=== PATIENT | male | born 1960 | race African-American/Black ===

== ENCOUNTER 2022-03-17 09:11 | Outpatient (REF) | payer MEDICAID, OTHER, SELFPAY ==
[2022-03-17 10:28] LABS: Appearance Urine CLEAR; Color Urine YELLOW; Glucose Urine UA NEG (NEG); Leukocyte Esterase Urine NEG (NEG); Nitrite Urine NEG (NEG); PH 7.5 (5.0-8.0); Urine Blood NEG (NEG); Urine Ketones NEG (NEG); Urine Protein NEG (NEG-TRACE)
== END 2022-03-17 09:12 | disposition home or self-care (01) ==
LOC: HO.LAB 09:11
PROVIDERS: Visit Provider Student in an Organized Health Care Education/Training Program
DX: R97.20 Elevated prostate specific antigen [PSA] (principal)
CPT/HCPCS: 81003

== ENCOUNTER 2023-02-25 13:58 | Outpatient (REF) | payer MEDICAID, OTHER, SELFPAY ==
--- NOTE | ~2023-02-25 | XR_ITS ---
EXAMINATION: XR CHEST CLINICAL INFORMATION: Cough COMPARISON: None available. TECHNIQUE: 2 views of the chest were obtained. FINDINGS: Right basilar opacity may represent atelectasis or infiltrate. The left lung is grossly clear. The cardiac silhouette is within normal limits. Tortuous versus ectatic arch and descending aorta Prominent infrahilar region on the right may be reactive. XR/XR chest 2V IMPRESSION: Findings consistent with right lower lobe/right middle lobe infiltrate/atelectasis. Prominent infrahilar region on the right may be reactive. Follow-up films are recommended in 4-6 weeks after treatment to assess for resolution as an underlying lesion cannot be excluded
== END 2023-02-25 13:59 | disposition home or self-care (01) ==
LOC: HO.HHCX 13:58
PROVIDERS: Visit Provider Emergency Medicine
DX: R05.9 Cough, unspecified (principal); R68.89 Other general symptoms and signs
CPT/HCPCS: 71046

== ENCOUNTER 2025-09-19 08:18 | Outpatient (REF) | payer SELFPAY ==
--- OUTSIDE RECORDS SUMMARY | 2025-09-18 09:00 | XMS_ITS | Encounter Summary ---
Author Organization [employer] Address [address] [facility] 7[address] [place] [address] Care Team Providers Care Clerk Carrier Name Role Phone Arlet Ansari MD Primary Care Provider [phone] Reason for Visit * Reason Comments Follow-up Encounter Details Date Type Department Care Team (Latest Contact Info) Description 09/18/2025 9:00 AM EST Office Visit [facility] [address] [place] [address] Arlet Ansari MD [address] [place] [address] Essential hypertension (Primary Dx); Dietary counseling; Exercise counseling; Prostate cancer (CMS/HCC) (HCC); Cobalamin deficiency; Benign prostatic hyperplasia with urinary frequency; Encounter for hepatitis C screening test for low risk patient; Screening for colon cancer; Erectile dysfunction following simple prostatectomy Social History Tobacco Use Types Packs/Day Years Used Date Smoking Tobacco: Never Passive Smoke Exposure: Never Smokeless Tobacco: Never Alcohol Use Standard Drinks/Week Comments Never 0 (1 standard drink = 0.6 oz pur e alcohol) Depression Answer Date Recorded Patient Health Questionnaire-9 Score 3 09/18/2025 Patient Health Questionnaire-9 Score 3 09/18/2025 Last PHQ-9: Questionnaire Data Not on file 1 Housing Stability Answer Date Recorded What is your housing situation today? I have barb romeo 09/04/[address] you li ve. Do you have problems with any of the following? None of the above 09/04/2025 Food Insecurity Answer Date Recorded Within the past 12 months, y ou worried that your food would run out before you got money to buy more: Never True 09/04/2025 Within the past 12 months,th e food you bought just didn't last and you didn't have enough money to get more: Never True Transportation Answer Date Recorded In the past 12 months, has l ack of transportation kept you from medical appts, meetings, work or from getting things needed for daily living? No 09/04/2025 Utilities Answer Date Recorded In the past 12 months, has t he electric, gas, oil or water company threatened to shut off services in your home? No 09/04/2025 Depression Answer Date Recorded Patient Health Questionnaire-2 Score 0 09/18/2025 Internet Access Answer Date Recorded Internet Access Q1 Yes 09/04/2025 Internet Access Q2 Not on file 09/04/2025 Sex and Gender Information Value Date Recorded Sex Assigned at Male 07/20/2022 10:32 AM EDT Legal Sex Male 10:32 AM EDT Gender Identity Male 07/20/2022 10:32 AM EDT Sexual Orientation Don't know 10/01/2022 1: 32 PM EST documented as of this encounter Last Filed Vital Signs Vital Sign Reading Time Taken Comments Blood Pressure 138/80 09/18/2025 9:32 AM EST Pulse 79 09/18/2025 9:32 AM EST Temperature 36.6 C (97.9 F) 09/18/2025 9:32 AM EST Respiratory Rate 20 09/18/2025 9:32 AM EST Oxygen Saturation 98% 09/18/2025 9:32 AM EST Inhaled Oxygen Concentration - - Weight 77.7 kg (171 lb 6.4 oz) 09/18/2025 9:32 A M EST Height 175.3 cm (5' 9 ) 09/18/2025 9:32 AM EST Body Mass Index 25.31 09/18/2025 9:32 AM EST documented in this encounter Functional Status * Over the past 2 weeks, how often have you been bothered by any of the following problems? Question Answer Date of Assessment Author Patient Health Questionnaire -2 Score 0 09/18/2025 9:45 AM EST Nafisa Gerardo MA * Little interest or pleasure in doing things Answer Date of Assessment Author Not at all 09/18/2025 9:45 AM EST Nafisa Gerardo MA * Feeling down, depressed, or hopeless Answer Date of Assessment Author Not at all 09/18/2025 9:45 AM EST Nafisa Gerardo MA * Trouble falling or staying asleep, or sleeping too much Answer Date of Assessment Author Not at all 09/18/2025 9:45 AM Nafisa Echavarria MA * Feeling tired or having little energy Answer Date of Assessment Author Not at all 09/18/2025 9:45 AM Nafisa Echavarria MA * Poor appetite or overeating Answer Date of Assessment Author Not at all 09/18/2025 9:45 AM Nafisa Echavarria MA * Feeling bad about yourself - or that you are a failure or have let yourself or your family down Answer Date of Assessment Author Not at all 09/18/2025 9:45 AM Nafisa Echavarria MA * Trouble concentrating on things, such as reading the newspaper or watching television Answer Date of Assessment Author Not at all 09/18/2025 9:45 AM Nafisa Echavarria MA * Moving or speaking so slowly that other people could have noticed? Or the opposite - being so fidgety or restless that you have been moving around a lot more than usual. Answer Date of Assessment Author Nearly every day 09/18/2025 9:45 AM Nafisa Echavarria MA * Thoughts that you would be better off or hurting yourself in some way Answer Date of Assessment Author Not at all 09/18/2025 9:45 AM Nafisa Echavarria MA * Patient Health Questionnaire-9 Score Answer Date of Assessment Author 3 09/18/2025 9:45 AM Nafisa Echavarria MA * How difficult have these problems made it for you to do your work, take care of things at home, or get along with other people? Answer Date of Assessment Author Not difficult at all 09/18/2025 9:45 AM Naifsa Reed MA documented as of this encounter Progress Notes * Arlet Ansari MD - 09/18/2025 9:00 AM EST SUBJECTIVE: Linus Bernabe is a 65 y.o. male who presents for chronic disease management. Denies recent illness, ER visit, or hospitalization. Acute Concerns: He wants to see a urologist for erectile dysfunction, but tried to call [facility], where he wasseen for prostate cancer and they told him that they would no longer see him. Chronic Conditions and Plans: HTN has been checking his BP once a day, readings have been 130-148/80-90. Compliant with lisinopril 40mg and HCTZ 50mg and Amlodipine 2.5mg B12 deficiency not taking any longer, does not notice a difference BPH managing without meds Prostate cancer s/p robotic prostatectomy 06/2022 at [facility] minimal urinary leakage First PSA < 0.01 after surgery, followup in Oct 2022 Reporting ED where he cannot achieve erection, was offered injectable and is scared of the injection Allergic rhinitis: not active currently Health Maintenance Imms- due Flu, PCV20, COVID, RSV, zoster; declines Colon- ordered Cologuard 09/08/25 PSA- check today Patient Active Problem List Diagnosis Date Noted Subcutaneous nodule of back 08/22/2025 Erectile dysfunction following simple prostatectomy 12/17/2023 Benign prostatic hyperplasia 08/24/2022 Cobalamin deficiency 08/24/2022 Prostate cancer (CMS/HCC) (HCC) 07/09/2022 Benign prostatic hyperplasia with nocturia 12/23/2021 Prostate nodule 12/23/2021 IFG (impaired fasting glucose) 11/08/2018 Essential hypertension 10/04/2018 Allergic rhinitis 2018 Surgical History[1] Social History Social History Narrative Not on file Review of Systems Constitutional: Negative. Respiratory: Negative. Cardiovascular: Negative. Gastrointestinal: Negative. Genitourinary: Erectile dysfunction Musculoskeletal: Negative. Skin: Negative. Psychiatric/Behavioral: Negative. OBJECTIVE: Vitals: 09/18/25 0932 BP: 138/80 BP Location: Left arm Patient Position: Sitting BP Cuff Size: Large adult Pulse: 79 Resp: 20 Temp: 97.9 ??F (36.6 ??C) TempSrc: Oral SpO2: 98% Weight: 171 lb 6.4 oz (77.7 kg) Height: 5' 9 (1.753 m) Physical Exam Vitals reviewed. Constitutional: Appearance: Normal appearance. He is normal weight. HENT: Head: Normocephalic and atraumatic. Cardiovascular: Rate and Rhythm: Normal rate and regular rhythm. Pulses: Normal pulses. Heart sounds: Normal heart sounds. Pulmonary: Effort: Pulmonary effort is normal. Breath sounds: Normal breath sounds. Abdominal: Palpations: Abdomen is soft. Skin: General: Skin is warm and dry. Capillary Refill: Capillary refill takes less than 2 seconds. Neurological: General: No focal deficit present. Mental Status: He is alert and oriented to person, place, and time. Psychiatric: Mood and Affect: Mood normal. Behavior: Behavior normal. ASSESSMENT/PLAN Problem List Items Addressed This Visit Benign prostatic hyperplasia Cobalamin deficiency Essential hypertension - Primary Relevant Medications sildenafil (Viagra) 25 MG tablet Other Relevant Orders Lipid Panel, Standard Comprehensive Metabolic Panel Hemoglobin A1c Prostate cancer (CMS/HCC) (HCC) Relevant Medications sildenafil (Viagra) 25 MG tablet Other Relevant Orders PSA,Total Erectile dysfunction following simple prostatectomy Relevant Medications sildenafil (Viagra) 25 MG tablet Other Visit Diagnoses Dietary counseling Exercise counseling Encounter for hepatitis C screening test for low risk patient Relevant Orders Hepatitis C Antibody with Reflex to HCV, RNA, Quantitative, Real-Time PCR Screening for colon cancer Relevant Orders Cologuard?? colon cancer screening Follow Up: 6 months or sooner prn Allergies[2] Current Medications[3] Polish Translation: Provided by [facility] staff member REGGIE Skelton [1] History reviewed. No pertinent surgical history. [2] No Known Allergies [3] Current Outpatient Medications: amLODIPine (Norvasc) 2.5 MG tablet, Take 1 tablet (2.5 mg) by mouth Once per day., Disp: 90 tablet,Rfl: 3 acetaminophen (Tylenol) 325 MG tablet, Take 2 tablets (650 mg) by mouth every 4 (four) hours if needed for moderate pain or fever., Disp: 30 tablet, Rfl: 0 Aspirin Low Dose 81 MG chewable tablet, CHEW 1 TABLET BY MOUTH EVERY DAY IN THE MORNING, Disp: 90 tablet, Rfl: 3 cyclobenzaprine (Flexeril) 10 MG tablet, TAKE 1 TABLET BY MOUTH TWICE DAILY, Disp: 40 tablet, Rfl: 0 Docusate Sodium (DSS) 100 MG capsule, Take 100 mg by mouth., Disp: , Rfl: fluticasone (Flonase) 50 MCG/ACT nasal spray, INSTILL 1 SPRAY IN EACH NOSTRIL ONCE DAILY, Disp: 48 g, Rfl: 0 hydroCHLOROthiazide (HYDRODiuril) 50 MG tablet, TAKE 1 TABLET BY MOUTH ONCE DAILY IN THE MORNING, Disp: 90 tablet, Rfl: 3 lisinopril 40 MG tablet, TAKE 1 TABLET BY MOUTH EVERY MORNING, Disp: 90 tablet, Rfl: 3 sildenafil (Viagra) 25 MG tablet, Take 1 tablet (25 mg) by mouth if needed each day for erectile dysfunction., Disp: 15 tablet, Rfl: 3 documented in this encounter Plan of Treatment Scheduled Orders Name Type Priority Associated Diagnoses Orde r Schedule Lipid Panel, Standard Lab Routine Essential hypertension Expected: 09/18/2025 (Approximate), Expires: 09/18/2026 Comprehensive Metabolic Panel Lab Routine Essential hypertension Expected: 09/18/2025 (Approximate), Expires: 09/18/2026 Hemoglobin A1c Lab Routine Essential hypertension Expected: 09/18/2025 (Approximate), Expires: 09/18/2026 Hepatitis C Antibody with Reflex to HCV, RNA, Quantitative, Real-Time PCR Lab Routine Encounter for hepatitis C screening test for low risk patient Expected: 09/18/2025, Expires: 09/18/2026 Cologuard colon cancer screening Lab Routine Screening for colon cancer Ordered: 09/18/2025 PSA,Total Lab Routine Prostate cancer (CMS/HCC) (HCC) Expected: 09/18/2025, Expires: 09/18/2026 documented as of this encounter Visit Diagnoses Diagnosis Essential hypertension- Primary Unspecified essential hypertension Dietary counseling Dietary surveillance and counseling Exercise counseling Prostate cancer (CMS/HCC) (HCC) Malignant neoplasm of prostate Cobalamin deficiency Other B-complex deficiencies Benign prostatic hyperplasia with urinary frequency Encounter for hepatitis C screening test for low risk patient Screening for colon cancer Special screening for malignant neoplasms, colon Erectile dysfunction following simple prostatectomy documented in this encounter Additional Health Concerns Assessment Noted Time PHQ-9 Depression Total Score: 3 09/18/20 25 9:45 AM EST documented as of this encounter Care Teams Clerk Carrier Relationship Specialty Start Date End Date Arlet Ansari MD [address] [place] [id number] PCP - General Family Medicine 08/17/22 documented as of this encounter
--- OUTSIDE RECORDS SUMMARY | 2025-09-19 08:24 | XMS_ITS | Encounter Summary ---
Author Organization [email or web address] Address [address] [facility] 7t [place] [address] Care Team Providers Care Wellness Specialist Name Role Phone Arlet Ansari MD Primary Care Provider [phone] Encounter Details Date Type Department Care Team (Late st Contact Info) Description 11/29/2023 Orders Only [facility] [address] [place], [place] [phone] Arlet Ansari MD [address] [place], [place] [phone] Social History Tobacco Use Types Packs/Day Years Used Date Smoking Tobacco: Never Passive Smoke Exposure: Never Smokeless Tobacco: Never Alcohol Use Standard Drinks/Week Comments Never 0 (1 standard drink = 0.6 oz pur e alcohol) Housing Stability Answer Date Recorded What is your housing situation today? I have barb romeo 07/31/[address] you li ve. Do you have problems with any of the following? None of the above 07/31/2023 Food Insecurity Answer Date Recorded Within the past 12 months, y ou worried that your food would run out before you got money to buy more: Never True 07/31/2023 Within the past 12 months,th e food you bought just didn't last and you didn't have enough money to get more: Never True 07/2023 Transportation Answer Date Recorded In the past 12 months, has l ack of transportation kept you from medical appts, meetings, work or from getting things needed for daily living? Yes, it has kept me from medical appointments or getting medications. 06/27/2023 Utilities Answer Date Recorded In the past 12 months, has t he electric, gas, oil or water company threatened to shut off services in your home? No 07/31/2023 Depression Answer Date Recorded Patient Health Questionnaire-2 Score 0 09/30/2022 Sex and Gender Information Value Date Recorded Sex Assigned at Male 07/20/2022 10:32 AM EDT Legal Sex Male 10:32 AM EDT Gender Identity Male 07/20/2022 10:32 AM EDT Sexual Orientation Don't know 10/01/2022 1: 32 PM EST documented as of this encounter Plan of Treatment Not on file documented as of this encounter Visit Diagnoses Not on filedocumented in this encounter Care Teams Wellness Specialist Relationship Specialty Start Date End Date Arlet Ansari MD [address] [place] [id number] PCP - General Family Medicine 08/17/22 documented as of this encounter
--- OUTSIDE RECORDS SUMMARY | 2025-09-19 08:24 | XMS_ITS | Encounter Summary ---
Author Organization [employer] Address [address] [facility] 7t [place] [address] Care Team Providers Care Validation Intern Name Role Phone Arlet Ansari MD Primary Care Provider [phone] Encounter Details Date Type Department Care Team (Late st Contact Info) Description 03/19/2023 Orders Only [facility] [address] [place], [place] [phone] Abe Brown MD [address] [place], [place] [phone] Pneumonia of right middle lobe due to infectious organism (Primary Dx) Social History Tobacco Use Types Packs/Day Years Used Date Smoking Tobacco: Never Smokeless Tobacco: Never Alcohol Use Standard Drinks/Week Comments Never 0 (1 standard drink = 0.6 oz pur e alcohol) Depression Answer Date Recorded Patient Health Questionnaire-2 Score 0 09/30/2022 Sex and Gender Information Value Date Recorded Sex Assigned at Male 07/20/2022 10:32 AM EDT Legal Sex Male 10:32 AM EDT Gender Identity Male 07/20/2022 10:32 AM EDT Sexual Orientation Don't know 10/01/2022 1: 32 PM EST COVID-19 Exposure Response Date Recorded In the last 10 days, have yo u been in contact with someone who was confirmed or suspected to have Coronavirus/COVID-19? No / Unsure 02/25/2023 12:39 PM EDT documented as of this encounter Plan of Treatment Scheduled Orders Name Type Priority Associated Diagnoses Orde r Schedule XR Chest 2 Views Imaging Routine Pneumonia of right middle lobe due to infectious organism Expected: 03/19/2023, Expires: 03/19/2024 documented as of this encounter Visit Diagnoses Diagnosis Pneumonia of right middle lobe due to infectious organism- Primary documented in this encounter Care Teams Validation Intern Relationship Specialty Start Date End Date Arlet Ansari MD [address] [place] [address] PCP - General Family Medicine 08/17/22 documented as of this encounter
--- OUTSIDE RECORDS SUMMARY | 2025-09-19 08:24 | XMS_ITS | Clinical Summary ---
Author Organization [facility] Address [address] [place] [address] Care Team Providers Care Auger Operator Name Role Phone Kelin Solis Primary Care Provider [phone] Allergies No known active allergies Medications lisinopril (PRINIVIL,ZESTR IL) 30 mg tablet Take 40 mg by mouth daily. 3 01/12/2018 Active hydroCHLOROthia zide (HYDRODIURIL) 25 mg tablet Take 25 mg by mouth daily. 3 01/12/2018 Active cholecalciferol (VITAMIN D3) 2,000 unit capsule Take 1 capsule by mouth once a day. 11/19/2021 Active aspirin chewable tablet 81 mg Chew and swallow 1 tablet (81 mg total) by mouth once a day. 07/17/2022 Active Active Problems Problem Noted Date Diagnosed Date Prostate cancer 07/09/2022 Prostate nodule 12/23/2021 Benign prostatic hyperplasia with nocturia 12/23 Family History Medical History Relation Name Comments No Known Problems Father No Known Problems Mother Relation Name Status Comments Father Mother Social History Tobacco Use Types Packs/Day Years Used Date Smoking Tobacco: Never Smokeless Tobacco: Never Tobacco Cessation:Counseling Given: Not Answered Alcohol Use Standard Drinks/Week Comments Not Currently 0 (1 standard drink = 0.6 oz pur e alcohol) rarely a glass of wine Sex and Gender Information Value Date Recorded Sex Assigned at Male 01/10/2024 3:01 PM EDT Legal Sex Male 9:49 AM EDT Gender Identity Male 02/25/2025 3:34 PM EDT Sexual Orientation Straight 02/25/2025 3: 34 PM EDT Sexual Orientation Don't know 02/25/2025 3: 34 PM EDT Last Filed Vital Signs Vital Sign Reading Time Taken Comments Blood Pressure 171/93 09/04/2024 8:45 AM EST Pulse 69 09/04/2024 8:45 AM EST Temperature 37.2 C (99 F) 07/10/2022 11:09 AM EDT Respiratory Rate 18 07/10/2022 11:09 AM EDT Oxygen Saturation 96% 07/10/2022 11:09 AM EDT Inhaled Oxygen Concentration - - Weight 75.6 kg (166 lb 9.6 oz) 07/09/2022 5:36 A M EDT Height 172.5 cm (5' 7.91 ) 07/09/2022 5:36 AM ED T Body Mass Index 25.4 07/09/2022 5:36 AM EDT Plan of Treatment Health Maintenance Due Date Last Done Comments Hepatitis C Screening 1960 Pneumococcal Vaccine: 50+ Years (1 of 2 - PCV) 1978 Zoster Vaccines (1 of 2) 1978 Colonoscopy 02/17/2019 02/17/2018, 02/17/2018 COVID-19 Vaccine (3 - Pfizer risk series) 11/24/2021 10/27/2021, 10/03/2021 Alcohol/Substance Use Screening 09/20/2024 Depression Screening and Follow-Up 09/20/2024 Fall Risk Screening 09/20/2024 Health Care Proxy Review 09/20/2024 Social Drivers of Health Annual Screening 09/20/2024 Influenza Vaccine (#1) 2025 DTaP,Tdap,and Td Vaccines (2 - Td or Tdap) 11/04/2031 11/04/2021 RSV Vaccine (60+ years old and patients) (1 - 1-dose 75+ series) 2034 Hepatitis B Vaccines Aged Out No long er eligible based on patient's age to complete this topic Procedures * Due to [place] [employer] law, this organization might not be sharing negative HIV tests. Procedure Name Priority Date/Time Associated Diagnosis Comments COLONOSCOPY 02/17/2018 from Last 3 Months or Most Recently Relevant to Health Maintenance Results * Due to [place] [employer] law, this organization might not be sharing negative HIV tests. * COLONOSCOPY (02/17/2018) Narrative Procedure Note Mami Guajardo MD - 02/17/2018 12:31 PM EDT [facility] Patient Name: Linus Bernabe Procedure Date: 02/17/2018 12:31 PM Date of : 1960 Admit Type: Outpatient Age: 57 Room: [place] [id number] Gender: Male Note Status: Finalized Attending MD: Mami Guajardo MD Procedure: Colonoscopy Indications: Screening for colorectal malignant neoplasm Providers: Mami Guajardo MD Referring MD: Kelin Solis (Referring MD) Requesting Provider: Medicines: Monitored Anesthesia Care Complications: No immediate complications. Estimated blood loss:Minimal. Procedure: After I obtained informed consent, the scope was passed under direct vision. Throughout the procedure, the patient's blood pressure, pulse, and oxygen saturations were monitored continuously. The Colonoscope was introduced through the anus and advanced to the cecum, identified by appendiceal orifice and ileocecal valve.The colonoscopy was performed without difficulty. Thepatient tolerated the procedure well. The quality of the bowel preparation was good. The bowel preparation used was CoLyte. Findings: A 25 mm polyp was found at 35 cm proximal to the anus. The polyp was pedunculated. The polyp was removed with a hot snare. Resection and retrieval were complete. For hemostasis, four hemostatic clips were successfully placed (MR conditional). There was no bleeding at theend of the procedure. The exam was otherwise without abnormality. Impression: - One 25 mm polyp at 35 cm proximal to the anus.Resected and retrieved. Clips (MR conditional) were placed. - The examination was otherwise normal. Recommendation: - Advance diet as tolerated today. - Await pathology results. - Telephone endoscopist for pathology results in 1week. - Repeat colonoscopy in 1 year for surveillance. - Discontinue aspirin and NSAIDs for 1 week. Mami Guajardo MD 02/17/2018 2:06:59 PM This report has been signed electronically. Number of Addenda: 0 Note Initiated On: 02/17/2018 12:31 PM Estimated Blood Loss: Estimated blood loss was minimal. Mami Guajardo MD PROVATION PROCEDURES Fi nal Result from Last 3 Months or Most Recently Relevant to Health Maintenance Insurance [facility]/FREE CARE Advance Directives Documents on File Type Date Recorded Patient Candle Extrusion Machine Operator Expl anation Health Care Proxy 06/25/2022 8:24 AM * Full Code (Latest Code Status on File) Date Activated Date Inactivated Comments 07/09/2022 5:25 AM 07/10/2022 3:41 PM * Full Code Date Activated Date Inactivated Comments 02/17/2018 12:18 PM 02/17/2018 4:50 PM Healthcare Agents on File Name Relationship Healthcare Agent [facility] p Communication Shanika Bulmaro Spouse Health Care Agent Care Teams Auger Operator Relationship Specialty Start Date End Date Kelin Solis [address] [place] [phone] PCP - General Internal Medicine 01/31/18
--- OUTSIDE RECORDS SUMMARY | 2025-09-19 08:24 | XMS_ITS | Encounter Summary ---
Author Organization [employer] Address [address] [facility] 7t [place] [address] Care Team Providers Care Environmental Programs Manager Name Role Phone Arlet Ansari MD Primary Care Provider [phone] Encounter Details Date Type Department Care Team (Late st Contact Info) Description 08/24/2022 Orders Only [facility] [address] [place] [address] Arlet Ansari MD [address] [place] [phone] Social History Tobacco Use Types Packs/Day Years Used Date Smoking Tobacco: Never Assessed Sex and Gender Information Value Date Recorded Sex Assigned at Male 07/20/2022 10:32 AM EDT Legal Sex Male 10:32 AM EDT Gender Identity Male 07/20/2022 10:32 AM EDT Sexual Orientation Don't know 10/01/2022 1: 32 PM EST documented as of this encounter Plan of Treatment Not on file documented as of this encounter Visit Diagnoses Not on filedocumented in this encounter Care Teams Environmental Programs Manager Relationship Specialty Start Date End Date Arlet Ansari MD [address] [place] [address] PCP - General Family Medicine 08/17/22 documented as of this encounter
--- OUTSIDE RECORDS SUMMARY | 2025-09-19 08:24 | XMS_ITS | Clinical Summary ---
Author Organization [employer] Address [address] [facility] [address] [place] [address] Care Team Providers Care Clubhouse Attendant Name Role Phone Arlet Ansari MD Primary Care Provider [phone] Allergies No known active allergies Medications Docusate Sodium (DSS) 100 MG capsule Take 100 mg by mouth. 2 Active acetaminophen (Tylenol) 325 MG tablet Take 2 tablets (650 mg) by mouth every 4 (four) hours if needed for moderate pain or fever. 30 tablet 3 Active hydroCHLOROthiazi de (HYDRODiuril) 50 MG tabletIndications :Essential hypertension TAKE 1 TABLET BY MOUTH ONCE DAILY IN THE MORNING 90 tablet 3 08/21/2025 10:47 AM EST 5 Active lisinopril 40 MG tabletIndications :Essential hypertension TAKE 1 TABLET BY MOUTH EVERY MORNING 90 tablet 3 08/21/2025 10:47 AM EST 5 Active cyclobenzaprine (Flexeril) 10 MG tablet TAKE 1 TABLET BY MOUTH TWICE DAILY 40 tablet 5 Active Aspirin Low Dose 81 MG chewable tablet CHEW 1 TABLET BY MOUTH EVERY DAY IN THE MORNING 90 tablet 3 08/21/2025 10:47 AM EST 5 Active fluticasone (Flonase) 50 MCG/ACT nasal spray INSTILL 1 SPRAY IN EACH NOSTRIL ONCE DAILY 48 g 5 Active amLODIPine (Norvasc) 2.5 MG tablet Take 1 tablet (2.5 mg) by mouth Once per day. 90 tablet 3 08/31/2025 5:18 PM EST 5 Active sildenafil (Viagra) 25 MG tabletIndications :Erectile dysfunction following simple prostatectomy Take 1 tablet (25 mg) by mouth if needed each day for erectile dysfunction. 15 tablet 3 09/18/2025 10:27 AM EST 5 10/18/19 26 Active cyanocobalamin (Vitamin B-12) 1000 MCG tablet Take 1 tablet by mouth at bed time. 2 09/18/20 25 Discontin ued(Thera py completed ) Active Problems Problem Noted Date Diagnosed Date Subcutaneous nodule of back 08/22/2025 Erectile dysfunction following simple prostatect lawrence 12/17/2023 Benign prostatic hyperplasia 08/24/2022 Cobalamin deficiency 08/24/2022 Assessment & Plan (10/01/2022 1:32 PM EST): Continue with daily Vitamin B12 supplementation Prostate cancer ([facility]/HCC) 07/09/2022 Assessment & Plan (12/17/2023 1:03 PM EDT): Will check PSA and re-refer to [facility] for followup of penile implant Assessment & Plan (10/01/2022 1:31 PM EST): Followed by [facility] Has PSA/followup Oct 2022 Minimal post-surgical symptoms No adjuvant therapy needed due to low Rose Mary score Benign prostatic hyperplasia with nocturia 12/23 Prostate nodule 12/23/2021 IFG (impaired fasting glucose) 11/08/2018 Essential hypertension 10/04/2018 Assessment & Plan (12/17/2023 12:58 PM EDT): Maintenance: Lisinopril and HCTZ BMP: today Lipid Panel: ASCVD Risk: Calculate pending updated labs EKG: Obtain baseline at f/u - Aerobic exercise to reduce BP. Initial goal of 30 min walk 3-5x/week. Increase as tolerated. - low-sodium diet (goal: <2g/day) and heart healthy diet such as DASH to reduce BP and prevent ASCVD. - Home BP monitoring 1-2 x day with goal of <140/90. - Seek immediate medical attention for chest pain, palpitations, SOB, syncope, or sudden changes in mental status. - Do not change or discontinue current prescriptions without first consulting health care provider Assessment & Plan (10/01/2022 1:28 PM EST): Maintenance: Lisinopril and chlorthalidone BMP: 10/2020 Lipid Panel: 10/2020 ASCVD Risk: Calculate pending updated labs - Aerobic exercise to reduce BP. Initial goal of 30 min walk 3-5x/week. Increase as tolerated. - low-sodium diet (goal: <2g/day) and heart healthy diet such as DASH to reduce BP and prevent ASCVD. - Home BP monitoring 1-2 x day with goal of <140/90. - Seek immediate medical attention for chest pain, palpitations, SOB, syncope, or sudden changes in mental status. - Do not change or discontinue current prescriptions without first consulting health care provider Allergic rhinitis 2018 Encounters Date Type Department Care Team Description 09/18/2025 9:00 AM EST Office Visit [address] [address] Arlet Ansari MD Essential hypertension (Primary Dx); Dietary counseling; Exercise counseling; Prostate cancer (CMS/HCC) (HCC); Cobalamin deficiency; Benign prostatic hyperplasia with urinary frequency; Encounter for hepatitis C screening test for low risk patient; Screening for colon cancer; Erectile dysfunction following simple prostatectomy 09/18/2025 Travel 09/04/2025 Patient Outreach [address] [address] Arlet Ansari MD Pre-visit Planning (SDOH screening negative and tobacco screening negative) 08/31/[address] [address] Arlet Ansari MD 08/30/2025 11:00 AM EST Clinical Support [address] [address] Janell Tenorio, TRAA Essential hypertension 08/30/2025 Travel 08/21/2025 9:15 AM EST Office Visit [address] [address] Jessi Smiley FNP Subcutaneous nodule of back (Primary Dx); Essential hypertension 08/21/2025 Travel 08/20/[address] [address] Arlet Ansari MD Nurse Triage from Last 3 Months Immunizations Immunization Administration Dates Next Due [employer] Covid-19 Vaccine 12+ 10/27/2021, Tdap 11/04/2021 Social History Tobacco Use Types Packs/Day Years Used Date Smoking Tobacco: Never Passive Smoke Exposure: Never Smokeless Tobacco: Never Tobacco Cessation:Counseling Given: Not Answered Alcohol Use Standard Drinks/Week Comments Never 0 [...] Don't know 10/01/2022 1: 32 PM EST Last Filed Vital Signs Vital Sign Reading [...] Mass Index 25.31 09/18/2025 9:32 AM EST Plan of Treatment Health Maintenance Due Date Last Done Comments CT Colonography 1959 Colonoscopy 1959 Colorectal Cancer Screening 1959 FIT DNA/Cologuard 1959 FIT 1959 FOBT 1959 Sigmoidoscopy 1959 Alcohol/Substance Use Screening 1971 Hepatitis C Screening 1977 Pneumococcal Vaccine: 50+ Years (1 of 1 - PCV) 2009 Zoster Vaccines (1 of 2) 2009 COVID-19 Vaccine (3 - 2024-2 6 season) 2025 10/27/2021, 10/03/2021 Influenza Vaccine (#1) 2025 Lipid Panel 08/12/2026 08/12/2021 SDOH Screening 09/04/2026 09/04/2025 Depression Screening 09/18/2026 09/18/2025, 09/18/2025 Tobacco Screening 09/18/2026 09/18/2025 DTaP/Tdap/Td Vaccines (2 - T d or Tdap) 11/04/2031 11/04/2021 RSV Patients and Patients Aged 60 years or older (1 - 1-dose 75+ series) 2034 HIB Vaccines Aged Out No longer eligi ble based on patient's age to complete this topic HPV Vaccines Aged Out No longer eligi ble based on patient's age to complete this topic Hepatitis A Vaccines Aged Out No long er eligible based on patient's age to complete this topic Hepatitis B Vaccines Aged Out No long er eligible based on patient's age to complete this topic IPV Vaccines Aged Out No longer eligi ble based on patient's age to complete this topic Meningococcal B Vaccine Aged Out No l onger eligible based on patient's age to complete this topic Meningococcal Vaccine Aged Out No arcadio ashley eligible based on patient's age to complete this topic RSV under 20 months Aged Out No longe r eligible based on patient's age to complete this topic Rotavirus Vaccines Aged Out No longer eligible based on patient's age to complete this topic Procedures Procedure Name Priority Date/Time Associated Diagnosis Comments LIPID PANEL, STANDARD Routine 08/12/2021 8:04 AM EST from Last 3 Months or Most Recently Relevant to Health Maintenance Results * LIPID PANEL, STANDARD (08/12/2021 8:04 AM EST) Chol/HDLC Ratio 2.4 <5.0 (calc) [facility] Cholesterol, Total 112 <200 mg/dL [facility] HDL Cholesterol 46 > OR = 40 mg/dL [facility] LDL Cholesterol 52 mg/dL (calc) [facility] Comment: Reference range: <100 Desirable range <100 mg/dL for primary prevention; <70 mg/dL for patients with CHD or diabetic patients with > or = 2 CHD risk factors. LDL-C is now calculated using the Rao-Moreno calculation, which is a validated novel method providing better accuracy than the Friedewald equation in the estimation of LDL-C. Rao SS et al. TOSHIA. 2013;310(19): 3801-1567 (http://education.[employer]/faq/XUG465) Non-HDL Cholesterol 66 <130 mg/dL (calc) [facility] Comment: For patients with diabetes plus 1 major ASCVD risk factor, treating to a non-HDL-C goal of <100 mg/dL (LDL-C of <70 mg/dL) is considered a therapeutic option. Triglycerides 48 <150 mg/dL [facility] 08/12/2021 8:04 AM EST us Taqueria Zapien MD LAB BLOOD ORDERABLES Final R esult [facility] [address] from Last 3 Months or Most Recently Relevant to Health Maintenance Insurance HSN FULL [facility] Care Teams Clubhouse Attendant Relationship Specialty Start Date End Date Arlet Ansari MD [address] [place] [address] PCP - General Family Medicine 08/17/22
--- OUTSIDE RECORDS SUMMARY | 2025-09-19 08:24 | XMS_ITS | Encounter Summary ---
Author Organization [employer] Address [address] [facility] [address] [place] [address] Care Team Providers Care History Faculty Member Name Role Phone Arlet Ansari MD Primary Care Provider [phone] Encounter Details Date Type Department Care Team (Latest Contact Info) Description 09/18/2025 Travel Social History Tobacco Use Types Packs/Day Years [...] Diagnoses Not on filedocumented in this encounter Additional Health Concerns Assessment Noted Time PHQ-9 Depression Total Score: 3 09/18/20 25 9:45 AM EST documented as of this encounter Care Teams History Faculty Member Relationship Specialty Start Date End Date Arlet Ansari MD [address] [place] [id number] PCP - General Family Medicine 08/17/22 documented as of this encounter
[2025-09-19 12:10] LABS: Alanine Aminotransferase 24 U/L (0-40); Albumin Level 3.9 g/dL (3.5-5.0); Alkaline Phosphatase 64 U/L (39-117); Anion Gap 10 (12-20); Aspartate Amino Transferase 32 U/L (5-37); Blood Urea Nitrogen 16 mg/dL (9-16); Calcium 9.2 mg/dL (8.4-10.2); Carbon Dioxide 29 mmol/L (22-29); Chloride 105 mmol/L (96-108); Cholesterol 167 mg/dL (<200); Estimated Glomerular Filt Rate > 60; HDL Cholesterol 60 mg/dL (>40); Potassium 3.6 mmol/L (3.3-5.1); Sodium 140 mmol/L (135-145); Total Protein 7.8 g/dL (6.5-8.0); Triglycerides 50 mg/dL (<150)
[2025-09-19 12:15] LABS: ~HepC Num1 0.10 S/CO (0.00-0.79); ~Hepatitis C Antibody Nonreactive (Nonreactive)
[2025-09-19 12:21] LABS: Prostate Specific Antigen < 0.10 ng/mL (<0.05-4.0)
== END 2025-09-19 08:19 | disposition home or self-care (01) ==
LOC: HO.HHCL 08:18
PROVIDERS: PCP General Practice; Visit Provider General Practice
DX: Z11.59 Encounter for screening for other viral diseases (principal); Z13.1 Encounter for screening for diabetes mellitus; Z12.5 Encounter for screening for malignant neoplasm of prostate; C61 Malignant neoplasm of prostate; I10 Essential (primary) hypertension
CPT/HCPCS: 36415; 80053; 80061; 83036; 84153; 86803